=== PATIENT | male | born 1975 | race Caucasian/White ===

== ENCOUNTER 2018-08-06 09:37 | Emergency (ER) | payer MEDICAID ==
[~2018-08-06] VITALS: Ht 177.8 cm; Wt 101.0 kg
--- NOTE | 2018-08-06 09:40 | NUR ---
NOT IN LOBBY
[2018-08-06 10:28] LABS: BASOPHILS # (AUTO) 0.05 x10^3/uL (0-0.1); BASOPHILS % (AUTO) 1 % (0-1); EOSINOPHILS # (AUTO) 0.04 x10^3/uL (0-0.4); EOSINOPHILS % (AUTO) 1 % (1-7); LYMPHOCYTES # (AUTO) 1.35 x10^3/uL (1-3.4); LYMPHOCYTES % (AUTO) 14 % (22-44); MD NO; MEAN CORPUSCULAR HEMOGLOBIN 28.2 pg (27.5-34.5); MEAN PLATELET VOLUME 8.8 fL (7.4-10.4); MONOCYTES % (AUTO) 6 % (2-9); NEUTROPHILS # (AUTO) 7.65 x10^3/uL (1.8-6.8); NEUTROPHILS % (AUTO) 79 % (42-75); PLATELET COUNT 307 x10^3/uL (130-400); RED BLOOD COUNT 5.68 x10^6/uL (4.38-5.82); RED CELL DISTRIBUTION WIDTH 13.7 % (9.4-14.8)
--- NOTE | 2018-08-06 10:34 | NUR ---
UPON ARRIVAL TO [facility] AT BEDSIDE. AFTER [address] JUDGE MD AT BEDSIDE
[2018-08-06 10:37] LABS: ALANINE AMINOTRANSFERASE 43 U/L (12-78); ALBUMIN 4.2 g/dL (3.4-5.0); ANION GAP 8 mmol/L (5-15); CALCIUM 9.1 mg/dL (8.5-10.1); CHLORIDE 109 mmol/L (98-107); CREATININE 0.87 mg/dL (0.7-1.3)
[2018-08-06 10:39] LABS: ALKALINE PHOSPHATASE 44 U/L (45-117); BILIRUBIN,TOTAL 0.9 mg/dL (0.2-1.0); TOTAL PROTEIN 7.7 g/dL (6.4-8.2)
[2018-08-06] MEDS ORDERED: PROMETHAZINE 25 MG/ML, 1ML ONE (10:52)
[2018-08-06] MEDS ORDERED: FAMOTIDINE 20 MG/2 ML ONE (10:53)
[2018-08-06] MEDS ORDERED: MORPHINE SULFATE 4 MG/ML, 1ML ONE (10:53)
[2018-08-06] MEDS ORDERED: PROMETHAZINE 25 MG/ML, 1ML IM ONE (11:00)
[2018-08-06] MEDS ORDERED: SODIUM CHLORIDE FLUSH 10ML SYR IVF ONE (11:00)
[2018-08-06] MEDS ORDERED: SODIUM CHLORIDE 0.9% 1,000ML IVBOLUS ONE (11:00)
[2018-08-06] MEDS ORDERED: MORPHINE SULFATE 4 MG/ML, 1ML IVPush PRN (11:00)
[2018-08-06] MEDS ORDERED: FAMOTIDINE 20 MG/2 ML IVP ONE (11:00)
--- NOTE | 2018-08-06 11:03 | NUR ---
IV FLUIDS INFUSING. MEDICATED FOR DRY HEAVING AND 10/10 ABDOMINAL PAIN.
--- NOTE | 2018-08-06 11:35 | NUR ---
UOB TO BATHROOM AFTER BOLUS COMPLETED. PT NO LONGER DRY HEAVING AT THIS TIME
[2018-08-06 11:52] LABS: MICROSCOPIC AUTO
[2018-08-06 11:54] LABS: CULTURE INDICATED? NO
--- NOTE | 2018-08-06 12:15 | NUR ---
PT TO CT
[2018-08-06] MEDS ORDERED: OMNIPAQUE 350 MG/ML, 100ML BOTTLE ONE (12:24)
[2018-08-06 12:46] VITALS: BP 186/99
--- NOTE | 2018-08-06 12:46 | NUR ---
NO VOMITING SINCE MEDICATED. MD RE-EVALUATING PT
--- NOTE | 2018-08-06 13:00 | NUR ---
[facility] in ED - 08/06/18 at 1300 by LUIS A PAIN IMPROVED SINCE MEDICATED. FLUIDS CONTINUE TO INFUSE
== END 2018-08-06 13:21 | disposition home or self-care (01) ==
LOC: ED 13:11
DX: R11.2 Nausea with vomiting, unspecified (principal); R10.84 Generalized abdominal pain; K76.9 Liver disease, unspecified; Z87.891 Personal history of nicotine dependence
CPT/HCPCS: 36415; 74021; 74177; 80053; 81001; 83690; 85025; 96361; 96372; 96374; 96375; 99284; J2550; J3490; J7030; Q9967

== ENCOUNTER 2018-08-23 01:13 | Emergency (ER) | payer MEDICAID ==
[~2018-08-23] VITALS: Ht 177.8 cm; Wt 100.8 kg
[2018-08-23 02:27] VITALS: BP 159/88
== END 2018-08-23 02:29 | disposition home or self-care (01) ==
LOC: ED 01:58
DX: K02.9 Dental caries, unspecified (principal)
CPT/HCPCS: 99283

== ENCOUNTER 2018-11-16 02:08 | Emergency (ER) | payer MEDICAID ==
[~2018-11-16] VITALS: Ht 177.8 cm; Wt 112.9 kg
[2018-11-16] MEDS ORDERED: HYDROcodone/APAP 5/325 TABLET ONE (02:23)
[2018-11-16] MEDS ORDERED: HYDROcodone/APAP 5/325 TABLET PO ONE (02:30)
[2018-11-16 02:44] VITALS: BP 162/89
== END 2018-11-16 02:46 | disposition home or self-care (01) ==
LOC: ED 02:42
DX: K02.9 Dental caries, unspecified (principal); K08.89 Other specified disorders of teeth and supporting structures
CPT/HCPCS: 99283

== ENCOUNTER 2018-11-16 21:41 | Emergency (ER) | payer MEDICAID ==
[~2018-11-16] VITALS: Ht 177.8 cm; Wt 110.6 kg
[2018-11-16] MEDS ORDERED: HYDROcodone/APAP 5/325 TABLET ONE (22:09)
[2018-11-16] MEDS ORDERED: BENZOCAINE AEROSOL SPRAY 20%, 60ML ONE (22:12)
[2018-11-16] MEDS ORDERED: HYDROcodone/APAP 5/325 TABLET PO ONE (22:30)
[2018-11-16 22:40] VITALS: BP 146/82
== END 2018-11-16 22:41 | disposition home or self-care (01) ==
LOC: ED 22:30
DX: K04.7 Periapical abscess without sinus (principal); K08.89 Other specified disorders of teeth and supporting structures; I10 Essential (primary) hypertension
CPT/HCPCS: 41800; 99283

== ENCOUNTER 2018-11-30 22:25 | Emergency (ER) | payer MEDICAID ==
[~2018-11-30] VITALS: Ht 177.8 cm; Wt 112.4 kg
[2018-11-30 22:28] VITALS: BP 121/95
[2018-11-30] MEDS ORDERED: LIDOCAINE 1%, 2ML INFIL ONE (23:00)
--- NOTE | 2018-11-30 23:10 | NUR ---
pt to room from lobby
[2018-11-30] MEDS ORDERED: LIDOCAINE-MPF 1%, 2ML ONE (23:27)
[2018-11-30] MEDS ORDERED: HYDROcodone/APAP 5/325 TABLET ONE (23:42)
[2018-12-01] MEDS ORDERED: HYDROcodone/APAP 5/325 TABLET PO ONE
== END 2018-12-01 00:23 | disposition home or self-care (01) ==
LOC: ED 12-01 00:08
DX: K04.7 Periapical abscess without sinus (principal); I10 Essential (primary) hypertension
CPT/HCPCS: 41800; 99283

== ENCOUNTER 2020-08-22 05:30 | Emergency (ER) | payer MEDICAID ==
[~2020-08-22] VITALS: Ht 177.8 cm; Wt 121.0 kg
--- NOTE | 2020-08-22 05:59 | NUR ---
pt here for sob x 8 months. pt states he had a sleep study done in the past and was told he had sleep apnea but never followed up on it. denies cp, or n/v. just sob, especially during exertion. pt placed on all monitors, orders in place. no other needs at this time
--- NOTE | 2020-08-22 06:02 | NUR ---
ekg in triage
[2020-08-22 06:15] LABS: BASOPHILS % (AUTO) 1 % (0-1); EOSINOPHILS % (AUTO) 4 % (1-7); LYMPHOCYTES % (AUTO) 18 % (22-44); MD NO; MEAN CORPUSCULAR HEMOGLOBIN 28.6 pg (27.5-34.5); MEAN CORPUSCULAR HGB CONC 34.7 g/dL (33.2-36.2); MEAN PLATELET VOLUME 8.2 fL (7.4-10.4); MONOCYTES % (AUTO) 11 % (2-9); NEUTROPHILS % (AUTO) 66 % (42-75); PLATELET COUNT 272 x10^3/uL (130-400); RED BLOOD COUNT 5.54 x10^6/uL (4.38-5.82); RED CELL DISTRIBUTION WIDTH 13.7 % (9.4-14.8)
[2020-08-22 06:26] LABS: ALANINE AMINOTRANSFERASE 35 U/L (12-78); ALBUMIN 3.7 g/dL (3.4-5.0); ANION GAP 9 mmol/L (5-15); CHLORIDE 109 mmol/L (98-107); CREATININE 0.97 mg/dL (0.7-1.3)
[2020-08-22 06:31] LABS: ALKALINE PHOSPHATASE 48 U/L (45-117); BILIRUBIN,TOTAL 0.5 mg/dL (0.2-1.0); TOTAL PROTEIN 7.4 g/dL (6.4-8.2); TROPONIN I < 0.015 ng/mL (0.000-0.045)
--- NOTE | 2020-08-22 06:50 | NUR ---
report to harsh martins
--- NOTE | 2020-08-22 06:51 | NUR ---
REC'D REPORT FROM SHIRLENE JAIN. PT RESTING IN BED. APPEARS IN NO ACUTE DISTRESS.
[2020-08-22 07:42] VITALS: BP 130/100
== END 2020-08-22 07:44 | disposition home or self-care (01) ==
LOC: ED 07:25
DX: G47.33 Obstructive sleep apnea (adult) (pediatric) (principal); R06.02 Shortness of breath; R06.00 Dyspnea, unspecified; R07.89 Other chest pain; I10 Essential (primary) hypertension; R94.31 Abnormal electrocardiogram [ECG] [EKG]
CPT/HCPCS: 36415; 71045; 80053; 83880; 84484; 85025; 93005; 99285